=== PATIENT | female | born 1985 | race Caucasian/White ===

== ENCOUNTER 2017-05-22 07:06 | Emergency (ER) | payer OTHER ==
[2017-05-22 07:07] VITALS: BMI 28.7
[2017-05-22 07:09] VITALS: O2SAT 100
--- NOTE | 2017-05-22 07:26 | ED PDOC ---
HPI: Female Pain Time Seen by Provider: 05/22/17 07:20 Chief Complaint (Nursing): Female Genitourinary History Per: Patient Onset/Duration Of Symptoms: Days (1) Current Symptoms Are (Timing): Still Present Severity: Mild Pain Scale Rating Of: 2 Quality Of Discomfort: Cramping Associated Symptoms: denies: Nausea, Vomiting, Diarrhea, Urinary Symptoms Additional Complaint(s): Vaginal bleeding since this AM assoc with lower abd cramping. Approx 4 weeks Abnormal Vaginal Bleeding: Yes Past Medical History Vital Signs: Last Vital Signs Temp 97.8 F 05/22/17 07:09 Pulse 80 05/22/17 07:09 Resp 16 05/22/17 07:09 BP 141/87 05/22/17 07:09 Pulse Ox 100 05/22/17 07:09 - Medical History PMH: No Chronic Diseases - Family History Family History: States: Unknown Family Hx - Immunization History Hx Tetanus Toxoid Vaccination: No Hx Influenza Vaccination: No Hx Pneumococcal Vaccination: No - Home Medications Home Medications: Ambulatory Orders Medication Instructions Recorded No Known Home Med 05/22/17 - Allergies Allergies/Adverse Reactions: Allergies Allergy/AdvReac Type Severity Reaction Status Date / Time No Known Allergies Allergy Verified 03/30/15 08:43 Review of Systems Gastrointestinal: Positive for: Abdominal Pain Genitourinary Female: Positive for: Vaginal Bleeding Musculoskeletal: Negative for: Back Pain Physical Exam - Physical Exam Appears: Positive for: Non-toxic, No Acute Distress Skin: Positive for: Normal Color, Warm, DRY Gastrointestinal/Abdominal: Positive for: Bowel Sounds, Soft. Negative for: Tenderness Pelvic Exam: Positive for: External Exam Normal, No Masses, Blood (scant blood in vault). Negative for: Tender Adnexa, Tender Uterus - Laboratory Results Result Diagrams: 05/22/17 07:50 05/22/17 07:50 - ECG O2 Sat by Pulse Oximetry: 100 Disposition - Clinical Impression Clinical Impression: Threatened miscarriage - Patient ED Disposition Is Patient to be Admitted: No Counseled Patient/Family Regarding: Studies Performed, Diagnosis, Need For Followup, Rx Given - Disposition [facility] Disposition: Routine/Home Disposition Time: 11:07 Condition: FAIR Instructions: Threatened Miscarriage Forms: [employer] (Danish)
[2017-05-22 08:11] LABS: BASO % 0.3 % (0.0-2.0); EOS # 0.1 K/uL (0.0-0.7); EOS % 0.9 % (0.0-4.0); HEMOGLOBIN 10.1 g/dL (12.0-16.0); LYMPH # 2.9 K/uL (1.0-4.3); LYMPH % 27.4 % (20.0-40.0); MEAN CORPUSCULAR HEMOGLOBIN 20.1 pg (27.0-31.0); MEAN PLATELET VOLUME 10.6 fl (7.2-11.7); MONO # 0.6 K/uL (0.0-0.8); MONO % 5.9 % (0.0-10.0); NEUT # 6.9 K/uL (1.8-7.0); NEUT % 65.5 % (50.0-75.0); NRBC % 0.1 % (0.0-0.0); RBC 5.01 Mil/uL (3.80-5.20); RED CELL DISTRIBUTION WIDTH 16.6 % (11.5-14.5); WHITE BLOOD COUNT 10.5 K/uL (4.8-10.8)
[2017-05-22 08:18] LABS: ALB/GLOB RATIO 1.1 (1.0-2.1)
[2017-05-22 08:49] LABS: ALBUMIN 3.7 g/dL (3.5-5.0); ALT/SGPT 33 U/L (9-52); AST/SGOT 18 U/L (14-36); BLOOD UREA NITROGEN 9 mg/dl (7-17); CALCIUM 8.9 mg/dL (8.4-10.2); GFR AFRICAN-AMERICAN > 60; GFR NON-AFRICAN AMERICAN > 60
--- NOTE | 2017-05-22 09:50 | US ---
PROCEDURE: HISTORY: r/o ectopic COMPARISON: TECHNIQUE: FINDINGS: Single live intrauterine fetus with a gestational age of 7 weeks and 1 day. Yolk sac present. heart motion identified. pole with a crown-rump length measurement corresponding to 6 weeks 2 days gestational age. The ovaries have a normal sonographic appearance. IMPRESSION: Single live intrauterine fetus with a mean gestational age of 6 weeks and 2 days based on the crown-rump length.
[2017-05-22 11:22] VITALS: BP 122/75; PULSE 72; RESP 14; TEMP 98.2
== END 2017-05-22 11:28 | disposition home or self-care (01) ==
LOC: H.ER 07:06
DX: O20.0 Threatened abortion (principal); Z3A.01 Less than 8 weeks gestation of pregnancy

== ENCOUNTER 2017-08-02 19:23 | Emergency (ER) | payer SELFPAY ==
[2017-08-02 19:23] VITALS: BMI 28.7
[2017-08-02 19:35] VITALS: BP 118/75; PULSE 90; RESP 18; TEMP 98.4; O2SAT 100
--- NOTE | 2017-08-02 20:46 | ED PDOC ---
HPI: Abdomen Time Seen by Provider: 08/02/17 19:30 Chief Complaint (Nursing): Female Genitourinary Chief Complaint (Provider): Female Genitourinary History Per: Patient History/Exam Limitations: no limitations Onset/Duration Of Symptoms: Days (x2) Current Symptoms Are (Timing): Still Present Additional Complaint(s): 32 year old female, approximately 17 weeks , presents to the emergency department with a complaint of left lower abdominal pain for the last 2 days. Patient reports abdominal pain is mostly resolved with some residual pain but mainly concerned because she has not felt any movement in her belly for a few weeks. She denies any fever, chills, vomiting or vaginal bleeding. A1 PMD: [facility] Past Medical History Reviewed: Historical Data, Nursing Documentation, Vital Signs Vital Signs: Last Vital Signs Temp 98.4 F 08/02/17 19:31 Pulse 90 08/02/17 19:31 Resp 18 08/02/17 19:31 BP 118/75 08/02/17 19:31 Pulse Ox 100 08/02/17 23:07 - Medical History PMH: No Chronic Diseases - Surgical History Surgical History: No Surg Hx - Family History Family History: States: Unknown Family Hx - Social History Current smoker - smoking cessation education provided: No Alcohol: None Drugs: Denies - Immunization History Hx Tetanus Toxoid Vaccination: No Hx Influenza Vaccination: No Hx Pneumococcal Vaccination: No - Home Medications Home Medications: Ambulatory Orders Medication Instructions Recorded No Known Home Med 05/22/17 - Allergies Allergies/Adverse Reactions: Allergies Allergy/AdvReac Type Severity Reaction Status Date / Time No Known Allergies Allergy Verified 03/30/15 08:43 Review of Systems ROS Statement: Except As Marked, All Systems Reviewed And Found Negative Constitutional: Negative for: Fever, Chills Gastrointestinal: Positive for: Abdominal Pain (LLQ). Negative for: Vomiting Genitourinary Female: Negative for: Vaginal Bleeding Physical Exam - Reviewed Nursing Documentation Reviewed: Yes Vital Signs Reviewed: Yes - Physical Exam Appears: Positive for: Non-toxic, No Acute Distress Head Exam: Positive for: ATRAUMATIC, NORMAL INSPECTION, NORMOCEPHALIC Skin: Positive for: Normal Color Eye Exam: Positive for: Normal appearance ENT: Positive for: Normal ENT Inspection Neck: Positive for: Normal Cardiovascular/Chest: Positive for: Regular Rate, Rhythm. Negative for: Murmur Respiratory: Positive for: Normal Breath Sounds. Negative for: Wheezing, Respiratory Distress Gastrointestinal/Abdominal: Positive for: Soft, Other (gravid). Negative for: Tenderness Back: Positive for: Normal Inspection Extremity: Positive for: Normal ROM (upper/lower) Neurologic/Psych: Positive for: Alert (x3), Oriented. Negative for: Motor/ Sensory Deficits - ECG O2 Sat by Pulse Oximetry: 100 (RA) Pulse Ox Interpretation: Normal Medical Decision Making Medical Decision Making: Initial Impression: Abdominal pain; R/O Complete spontaneous Initial Plan: * BETA-HCG * US transvaginal 2215 US FINDINGS: Fetus: Single live intrauterine gestation. Heart rate: heart rate of 146 beats per minute. Presentation: Transverse. Placenta: Anterior placenta. No placenta previa or abruption. Amniotic fluid: Normal. Anatomy: No gross anomaly is appreciated. BIOMETRICS Gestational age: Estimated gestational age of 17 weeks 3 days by measurements. JAMEEL: 01/07/2018 by ultrasound. EFW: Estimated weight of 186 g (32%). BPD: 3.9 cm, correlating with 17 weeks 6 days (68%). HC: 13.8 cm, correlating with 17 weeks 1 day(28%). AC: 11.7 cm, correlating with 17 weeks 3 days(48%). FL: 2.3 cm, correlating with 17 weeks 0 days (28%). MATERNAL: Uterus: Unremarkable. No myometrial mass. Cervix: No cervical dilatation or effacement. Adnexa: Ovaries not visualized. No adnexal masses. Free fluid: No significant free fluid. IMPRESSION: 1. Single live intrauterine gestation. pt made aware of results. feels better. stable for dc and will follow up with outpt infrastructure solutions architect, Scribe Attestation: Documented by Pretty Vo-Dickey, acting as a scribe for Jayleen Membreno MD. Provider Scribe Attestation: All medical record entries made by the Scribe were at my direction and personally dictated by me. I have reviewed the chart and agree that the record accurately reflects my personal performance of the history, physical exam, medical decision making, and the department course for this patient. I have also personally directed, reviewed, and agree with the discharge instructions and disposition. Disposition - Clinical Impression Clinical Impression: - Patient ED Disposition Is Patient to be Admitted: No Counseled Patient/Family Regarding: Studies Performed, Diagnosis, Need For Followup - Disposition Disposition: Routine/Home Disposition Time: 21:00 Condition: IMPROVED Additional Instructions: follow up with your primary hand coremaker return to the ED with any worsening or concerning symptoms Instructions: Symptoms Forms: [employer] (Turkish)
--- NOTE | 2017-08-02 22:16 | US ---
EXAM: US After First Trimester, Transabdominal CLINICAL HISTORY: 32 years old, female; Signs and symptoms; Lmp or gestational age (in weeks): 04/02/17; Antepartum complications; Other: No movement; ; Additional info: 17 wk no movement TECHNIQUE: Real-time transabdominal obstetrical ultrasound of the maternal pelvis and a second or third trimester with image documentation. COMPARISON: US - OB TRANSVAGINAL 2015-01-28 17:35 FINDINGS: Fetus: Single live intrauterine gestation. Heart rate: heart rate of 146 beats per minute. Presentation: Transverse. Placenta: Anterior placenta. No placenta previa or abruption. Amniotic fluid: Normal. Anatomy: No gross anomaly is appreciated. BIOMETRICS Gestational age: Estimated gestational age of 17 weeks 3 days by measurements. JAMEEL: 01/07/2018 by ultrasound. EFW: Estimated weight of 186 g (32%). BPD: 3.9 cm, correlating with 17 weeks 6 days (68%). HC: 13.8 cm, correlating with 17 weeks 1 day(28%). AC: 11.7 cm, correlating with 17 weeks 3 days(48%). FL: 2.3 cm, correlating with 17 weeks 0 days (28%). MATERNAL: Uterus: Unremarkable. No myometrial mass. Cervix: No cervical dilatation or effacement. Adnexa: Ovaries not visualized. No adnexal masses. Free fluid: No significant free fluid. IMPRESSION: 1. Single live intrauterine gestation.
[2017-08-02 22:34] LABS: SQUAMOUS EPITHIAL 1 /hpf (0-5); URINE BILIRUBIN NEGATIVE (NEGATIVE); URINE BLOOD NEGATIVE (NEGATIVE); URINE CLARITY CLEAR (Clear); URINE COLOR COLORLESS (YELLOW); URINE GLUCOSE (UA) NEG (Normal); URINE HYALINE CAST 0-2 /hpf (0-2); URINE LEUKOCYTE ESTERASE NEG Leu/uL (Negative); URINE PROTEIN NEGATIVE (NEGATIVE); URINE UROBILINOGEN 0.2-1.0 mg/dL (0.2-1.0)
== END 2017-08-02 23:39 | disposition home or self-care (01) ==
LOC: H.ER 19:23
DX: O26.92 Pregnancy related conditions, unspecified, second trimester (principal); R10.2 Pelvic and perineal pain; Z36.9 Encounter for antenatal screening, unspecified; Z3A.17 17 weeks gestation of pregnancy

== ENCOUNTER 2017-11-01 12:58 | Emergency (ER) | payer SELFPAY ==
[2017-11-01 15:17] VITALS: BMI 27.8
[2017-11-01 16:40] LABS: SQUAMOUS EPITHIAL 3 /hpf (0-5); URINE BACTERIA RARE (<OCC); URINE BILIRUBIN NEGATIVE (NEGATIVE); URINE BLOOD NEGATIVE (NEGATIVE); URINE CLARITY SLIGHTY-CLOUDY (Clear); URINE COLOR YELLOW (YELLOW); URINE GLUCOSE (UA) NEG (Normal); URINE LEUKOCYTE ESTERASE NEG Leu/uL (Negative); URINE PROTEIN NEGATIVE (NEGATIVE); URINE UROBILINOGEN 0.2-1.0 mg/dL (0.2-1.0)
[2017-11-01 22:38] VITALS: BP 97/56; PULSE 84; O2SAT 99
--- NOTE | 2017-11-02 11:40 | OBHP ---
Datetime: 11/01/2017 14:37 IP Adm Impression: , intrauterine Admit Comment, IP Provider: PNP: [facility] 32 yo at 31 wks based off of ultrasound performed at 2 months (as per patient) is presenti ng with c/o rt upper _ lt upper abd pain since about 11am this morning, 10/12. Patient also reports so me lower back pain. Pt denied any complications in this . OBGYNhx: 2014- miscarriage with D _ C at 12-13 wks 2016- , F PMH: neg Allergies: neg Fam hx: Dad- DM Sochx: no Tobacco, EtOH or drugs Surghx: neg ROS: neg for nausea, vomitting, cp or sob PE: Gen: well appearing female Cardio: s1s2 no murmurs Abd: BS +, nontender Ext: calves nontender A/P: 32 yo at 31 wks 1. Will perform speculum exam Patient seen and examined with Dr. Christina Lees PGY-1 obh addendum: pt seen _ examined by me. denies ctxs, cramping, decreased fm, pprom, vag bleeding or coitus in pa st 24hrs. o: u/a neg i: abd discomfort due to preg p: d/c home ptl precautions f/u w/ ob w/in 1wk avoid fatty, fried and spicy foods. Pelvic Type - PN: Adequate Extremities - PN: Normal Abdomen - PN: Normal Back - PN: Normal Lungs - PN: Normal Heart - PN: Normal Neurologic - PN: Normal HEENT - PN: Normal General - PN: Normal FHR - Baseline A Provider: 140 Contraction Comments Provider: occasional not appreciated by pt EGA AdmitDate IP: 30.3 Vital Signs Provider: Reviewed; Within Normal Limits IP Chief Complaint: Maternal discomfort NICHD Variability Prov Fetus A: Moderate 6-25bpm NICHD Accel Fetus A IP Provider: 10X10 FHR Category Provider Fetus A: Category I Dilatation, Provider: 0 Effacement, Provider: 0 Station, Provider: -4 Genitourinary Exam: Normal Signature: eryn
== END 2017-11-01 18:00 | disposition home or self-care (01) ==
LOC: H.EROB2 12:58
DX: O26.93 Pregnancy related conditions, unspecified, third trimester (principal); R10.2 Pelvic and perineal pain; M54.5 Low back pain; Z3A.31 31 weeks gestation of pregnancy

== ENCOUNTER 2018-01-03 15:42 | Emergency (ER) | payer MEDICAID, SELFPAY ==
[2017-11-19 08:07] VITALS: BMI 27.8
--- NOTE | 2018-01-03 18:19 | OBDCSUM ---
Datetime: 01/03/2018 17:20 Discharged to, Provider: Home Follow up at, Provider: [facility] Disch Instr Activity: Normal activity Disch Instr Diet: Regular Discharge Diagnosis, Provider: False Labor - Undelivered Discharge Time: 01/03/2018 17:20 Follow up in weeks, Provider: as per appt
--- NOTE | 2018-01-03 18:19 | OBHP ---
Datetime: 01/03/2018 16:04 IP Adm Impression: Term, intrauterine IP Admit Plan: Observation/Evaluation Admit Comment, IP Provider: 32 yo f at 39.4 GA was sent to the OB ED from clinic because of possible rupture of membranes. Patient reports she cannot tell whether see broke her water while urinating this morning or not bu t she denies vaginal gush of fluid and vaginal bleeding. She reports good movement. Of note: GBS positive 12/13/17. PMH: Iron deficiency Anemia and beta thalassemia Medications: Ferrous sulfate and PNV Surgical history: Denies Allergies: NKDA PE: No acute distress Heart: S1 and S2, no murmurs, gallops or rubs. Lungs: Clear air entry bilaterally. Vaginal Exam: Assistant Professor Of [employer] present. Patient is 3//-3. Nitrazine paper negative. No pooling on spucu lum exam. heart rate: Baseline 145; Moderate variability; Accelerations present. No decelerations. No contractions. Category 1 tracing. Assessment: 32 yo f at 39.4 GA was sent to the OB ED from clinic because of possible ruptu re of membranes found to be Nitrazine negative and no pooling on exam. Plan: - heart monitor - Observe Patient reexamined at 1734 - Exam remains unchanged (07/02/-3). Discharge: 1734 - Patient being discharged and was counseled on returning if she has a gush of water expelled thro ugh the vagina, vaginal bleeding, decreased movement or Contractions that are 5 minutes apart. Patient has ultrasound scheduled for tomorrow. Discussed case with Dr. Marquita Richards, PGY-[address] Juárez: I have evaluated the patient independently and I agree with the above Pelvic Type - PN: Adequate Extremities - PN: Normal Abdomen - PN: Normal Back - PN: Normal Breast - PN: Not Done Lungs - PN: Normal Heart - PN: Normal Thyroid - PN: Not Done Neurologic - PN: Normal HEENT - PN: Normal General - PN: Normal FHR - Baseline A Provider: 145 Contraction Comments Provider: Patient unable to specify Comments, ACOG Physical Exam: PE: No acute distress Heart: S1 and S2, no murmurs, gallops or rubs. Lungs: Clear air entry bilaterally. Vaginal Exam: Assistant Professor [employer] present. Patient is 07/02/-3. Nitrazine paper negative. No pooling on spucu lum exam. heart rate: Baseline 145; Moderate variability; Accelerations present. No decelerations. Cat egory 1 tracing. Pool Provider: Negative Nitrazine Provider: Negative EGA AdmitDate IP: 39.3 Vital Signs Provider: Reviewed; Within Normal Limits IP Chief Complaint: Uterine contractions; Suspected ruptured membranes NICHD Variability Prov Fetus A: Moderate 6-25bpm NICHD Accel Fetus A IP Provider: 15X15 FHR Category Provider Fetus A: Category I NICHD Decel Fetus A IP Provider: None Dilatation, Provider: 3cm Effacement, Provider: 30 Station, Provider: -3 Genitourinary Exam: Normal DTRs - PN: Not Done
[2018-01-03 22:43] VITALS: BP 106/67; PULSE 89; RESP 17
== END 2018-01-03 17:30 | disposition home or self-care (01) ==
LOC: H.EROB2 15:42
DX: O34.63 Maternal care for abnormality of vagina, third trimester (principal); N89.8 Other specified noninflammatory disorders of vagina; Z3A.39 39 weeks gestation of pregnancy

== ENCOUNTER 2018-01-03 23:19 | Inpatient (IN) | payer MEDICAID, SELFPAY ==
[2018-01-03 23:34] VITALS: BMI 30.7
[2018-01-03] MEDS ORDERED: Lactated Ringer's 1,000 ML IV ONE (23:34)
[2018-01-03] MEDS ORDERED: Penicillin G Potassium 5 MU in Sodium Chloride 0.9% 50 ML IVPB ONE (23:45)
[2018-01-03] MEDS ORDERED: Penicillin G 5 Million Unit Vial IVPB ONE (23:51)
[2018-01-04 00:33] LABS: BASO # 0.1 K/uL (0.0-0.2); BASO % 0.5 % (0.0-2.0); EOS # 0.1 K/uL (0.0-0.7); EOS % 0.4 % (0.0-4.0); HEMOGLOBIN 9.9 g/dL (12.0-16.0); LYMPH # 2.9 K/uL (1.0-4.3); LYMPH % 17.4 % (20.0-40.0); MEAN CELL VOLUME 63.9 fl (81.0-99.0); MEAN CORPUSCULAR HEMOGLOBIN 20.5 pg (27.0-31.0); MEAN CORPUSCULAR HGB CONC 32.2 g/dL (33.0-37.0); MEAN PLATELET VOLUME 9.3 fl (7.2-11.7); MONO # 0.6 K/uL (0.0-0.8); MONO % 3.8 % (0.0-10.0); NEUT # 13.1 K/uL (1.8-7.0); NEUT % 77.9 % (50.0-75.0); RBC 4.81 Mil/uL (3.80-5.20); RED CELL DISTRIBUTION WIDTH 16.3 % (11.5-14.5); WHITE BLOOD COUNT 16.8 K/uL (4.8-10.8)
[2018-01-04 00:42] VITALS: O2SAT 100
[2018-01-04] MEDS ORDERED: Oxytocin 30 UNIT 30 UNITS/500 ML BAG IV ONE (01:45)
[2018-01-04] MEDS ORDERED: OXYTOCIN/0.9 % NS 20 UNIT/1,000 ML BAG IV SCH (02:00)
[2018-01-04] MEDS ORDERED: Benzocaine/Menthol SPRAY TOP PRN ×2 (02:46→06:06)
--- NOTE | 2018-01-04 07:18 | OBDS ---
DELIVERY PERSONNEL Delivery Doctor: Irene Juárez MD Language Pathologist: Brunilda Mortensen RN (Annotations: Data stored by N on behalf of user) Resident: Dr Gonzalez / Dr Thompson MATERNAL INFORMATION Delivery Anesthesia: None Medications in Delivery: Pitocin Estimated Blood Loss (ml): 200 Placenta Cultured: No (Annotations: Data stored by CPN on behalf of user) Maternal Complications: None Provider Comments: Over intact perineum, of live male at 02:27 AM, Weight 2990 gm, 12/12 A PGAR. Head OA delivered first followed with delivery of right anterior shoulder in a controlled genesis r followed by posterior arm and body. was bulb suctioned nasopharygeally and crying spontaneou sly. Umbilical cord was cut. Skin to skin was done with mother. Placenta was delivered intact spontan eously. Perineum 1st degree laceration and repaired. Uterus firm and appropriately hemostatic followi ng delivery. Pt tolerated delivery well. No Complications. QBL 200 mL. Patient and baby remained stable. OB attending Dr. Juárez was present and active throughout the delivery --- John Gonzalez MD PGY-2 LABOR SUMMARY EDC: 01/07/2018 00:00 No. Babies in Womb: 1 Attempted: No Labor Anesthesia: None LABOR INFORMATION Reason for Induction: Not Applicable Onset of Labor: 01/03/2018 21:00 Complete Dilatation: 01/04/2018 01:47 Oxytocin: N/A Group B Beta Strep: Positive Antibiotics # of Doses: 1 Antibiotics Time of Last Dose: 0058 Steroids Given: None Reason Steroids Not Administered: Not Applicable MEMBRANES Membranes Rupture Method: Artificial Rupture of Membranes: 01/04/2018 02:18 Length of Rupture (hrs): 0.15 Amniotic Fluid Color: Light Meconium Amniotic Fluid Amount: Scant Amniotic Fluid Odor: Normal STAGES OF LABOR Stage 1 hrs: 4 Stage 1 min: 47 Stage 2 hrs: 0 Stage 2 min: 40 Stage 3 hrs: 0 Stage 3 min: 3 Total Time in Labor hrs: 5 Total Time in Labor min: 30 VAGINAL DELIVERY Episiotomy: None Laceration Extension: First Degree Laceration Type: Perineal Laceration Repair: Yes Laceration Repair Note: 1st degree perineal laceration repaired with (1) 2.0 rapide. Initial Vag Sponge Count: 15 Final Vag Sponge Count: 15 Initial Vag Sharps Count: 2 Final Vag Sharps Count: 2 Sponge Count Correct: Yes Sharps Count Correct: Yes Count Comment: count correct BABY A INFORMATION Infant Delivery Date/Time: 01/04/2018 02:27 Method of Delivery: Vaginal Born in Route : No : N/A Forceps: N/A Vacuum Extraction: N/A Shoulder Dystocia : No SHOULDER DYSTOCIA BABY A Infant Delivery Date/Time: 01/04/2018 02:27 PRESENTATION/POSITION BABY A Presentation: Cephalic PLACENTA INFORMATION BABY A Placenta Delivery Time : 01/04/2018 02:30 Placenta Method of Delivery: Spontaneous Placenta Status: Delivered SCORES BABY A Heart Rate 1 min: >100 bpm Resp Effort 1 min: Good Cry Reflex Irritability 1 min: Cough or Sneeze or Pulls Away Muscle Tone 1 min: Active Motion Color 1 min: Body Shelley, Extremities Blue Resuscitation Effort 1 min: Tactile Stimulation SCORE 1 MIN: 9 Heart Rate 5 min: >100 bpm Resp Effort 5 min: Good Cry Reflex Irritability 5 min: Cough or Sneeze or Pulls Away Muscle Tone 5 min: Active Motion Color 5 min: Body Shelley, Extremities Blue Resuscitation Effort 5 min: N/A SCORE 5 MIN: 9 INFANT INFORMATION BABY A Gestational Age at Delivery: 39.4 Gestational Status: Term Infant Outcome : Liveborn Infant Condition : Stable Infant Sex: Female IDENTIFICATION/MEDS BABY A ID Band Number: [id number] ID Band Location: Left Leg; Left Arm WEIGHT/LENGTH BABY A Infant Birthweight (gms): 2990 Weight (lb): 6 Weight (oz): 9 CORD INFORMATION BABY A No. Cord Vessels: 3 Nuchal Cord : N/A Cord Blood Taken: Yes Suction: None ASSESSMENT BABY A Complications: None Physical Findings at Delivery: Within Normal Limits Respirations: Appears Normal Tile Layer Drainage/ALS Called : No Infant Care By: Pietro Transferred To: Remains with Mother
[2018-01-04] MEDS ORDERED: Multivitamin With Minerals Tab PO SCH (09:00)
[2018-01-04] MEDS: Multivitamin With Minerals Tab PO SCH (09:43)
[2018-01-04 10:16] LABS: MEAN CELL VOLUME 64.2 fl (81.0-99.0); MEAN CORPUSCULAR HEMOGLOBIN 20.8 pg (27.0-31.0); MEAN CORPUSCULAR HGB CONC 32.5 g/dL (33.0-37.0); RBC 3.82 Mil/uL (3.80-5.20); RED CELL DISTRIBUTION WIDTH 16.5 % (11.5-14.5); WHITE BLOOD COUNT 18.4 K/uL (4.8-10.8)
--- NOTE | 2018-01-04 10:53 | OBPPN ---
Datetime: 01/04/2018 05:00 PP Pain Prov: Within normal limits PP Nausea Prov: Denies PP Flatus Prov: No PP BM Prov: No PP Heart Prov: Normal PP Lungs Prov: Normal PP Abdomen/Uterus Prov: Normal PP Lochia Prov: Normal PP Extremities Prov: Normal PP Progress Prov: Normal PP Impression Prov: Normal progression PP Plan Prov: Continue present management PP Progress Note Prov: PPD 0 S: 32 yo . Seen and examined bedside. Patient reports mild pain since delivery, controlled wit h pain medication. Has not ambulated yet. without difficulty. Lochia is similar to mens es volume. Has not passed gas or had bowel movement. She reports muscle aching in her R calf, but den ies any tenderness to palpation or increased tenderness with movement. Denies fever/chills, diarrhea, nausea/vomitting, CP/SOB, and lightheadedness. O: BP 114/64, HR 86, Tmax 99F Blood: B pos Rubella: non-immune PE: GEN: A_O, Resting comfortably in bed eating HEENT: White sclera, oral mucosa moist Breast: Engorged Lungs: CTA B/L, no wheeze CVS: RRR, S1, S2 normal ABD: +BS, firm fundus @ umbilicus, soft Pelvic: Appropriate amount of lochia, no odor, minimal small clots Assessment:32 yo f at 39.4 weeks on 01/04/18 at 2:27am. Pt afebrile, tolerating pain with medication and tolerating oral intake of liquids and solids. Plan: Regular diet as tolerated OOB with caution Ibuprofen 600mg 1tab Q6h PO for mild pain Encourage and ambulatory Iron: if h/h <10, take with Vit C Colace 100mg PO BID for constipation Simethicone 80mg BID for gas Rubella non-immune: MMR prior to D/C Disposition: anticipate discharge to home on 01/06/18 with oob/ambulatory precaution. Case discussed with Dr. Juárez. ----Ml Thompson, PGY1 Family Medicine Patient seen and examined by me this am. Agree with above resident note. Encouraged breast feeding and ambulation. Continue pain meds as needed. --Dr. Osorio IP PP Procedures: None Vital Signs Provider PP: Within Normal Limits
[2018-01-05] MEDS: Multivitamin With Minerals Tab PO SCH (08:26)
[2018-01-05] MEDS ORDERED: Measles, Mumps, and Rubella 0.5 ML VIAL SC ONE ×2 (10:00→15:30)
--- NOTE | 2018-01-05 10:02 | OBPPN ---
Datetime: 01/05/2018 05:01 PP Pain Prov: Within normal limits PP Nausea Prov: Denies PP Flatus Prov: Yes PP BM Prov: No PP Breasts Prov: Not Done PP Heart Prov: Normal PP Lungs Prov: Normal PP Abdomen/Uterus Prov: Normal PP Lochia Prov: Normal PP Vulva/Perineum Prov: Not Done PP CVA Tenderness Prov: Not Done PP Extremities Prov: Normal PP C/S Incision Prov: Not Applicable PP Progress Prov: Normal PP Impression Prov: Normal progression PP Plan Prov: Continue present management PP Progress Note Prov: PPD 1 S: 32 yo f . Seen and examined bedside. Patient reports mild pain since delivery, controlle d with pain medication. Has ambulated to the bathroom without dizziness. without issues but interested in supplementing with formula. Lochia is similar in volume to a heavy menses. Admits to passing gas but denies any bowel movements. Denies fever/chills, diarrhea, nausea/vomitting, CP/SO B, calf pain and lightheadedness. O: BP 113/76 , HR 99, Tmax 99F Blood: B+, Antibody neg PE: GEN: A_O, Resting comfortably in bed HEENT: White sclera, oral mucosa moist Breast: Engorged Lungs: CTA B/L, no wheeze CVS: RRR, S1, S2 normal ABD: +BS, firm fundus @ umbilicus, soft Pelvic: Appropriate amount of lochia, no odor, minimal small clots Assessment: 32 yo on 01/04/18. Pt afebrile, tolerating pain with medication and tolera ting oral intake of liquids and solids. Plan: Regular diet as tolerated OOB with caution Ibuprofen 600mg 1tab Q6h PO for mild pain Encourage and ambulation Iron: if h/h <10, take with Vit C Colace 100mg PO BID for constipation Simethicone 80mg BID for gas Rubella non-immune: MMR prior to D/C Disposition: anticipate discharge to home on 01/06/18 with oob/ambulatory precaution. ----Ml Thompson, PGY1 Family Medicine Patient seen and examined by me today. Agree with above note. Ambulation and breast feeding encour aged --Dr. Osorio
[2018-01-06] MEDS: Multivitamin With Minerals Tab PO SCH (09:37)
--- NOTE | 2018-01-06 10:08 | OBPPN ---
Datetime: 01/06/2018 07:52 PP Pain Prov: Within normal limits PP Nausea Prov: Denies PP Flatus Prov: Yes PP BM Prov: Yes PP Breasts Prov: Not Done PP Heart Prov: Normal PP Lungs Prov: Normal PP Abdomen/Uterus Prov: Normal PP Lochia Prov: Normal PP Vulva/Perineum Prov: Not Done PP CVA Tenderness Prov: Normal PP Extremities Prov: Normal PP C/S Incision Prov: Not Applicable PP Progress Prov: Normal PP Impression Prov: Normal progression PP Plan Prov: Discharge PP Progress Note Prov: PPD 2 S: 32 yo s/p NVD on 01/04/2018 at 02:27. Pt. is seen and examined at bedside this AM. No s ignificant overnight events. Pt reports occasional abdominal pain, but well controlled with pain meds . Pt is ambulating without any difficulties. Breast feeding baby. Tolerating PO diet. Lochia is simil ar to light menses in volume. Voiding freely, with bowel movement, and passing gas per rectum. Denies fever, chills, diarrhea, nausea, vomiting, chest pain, dyspnea, and dizziness. O: VS: stable GEN: NAD Cardio: S1S2, no M/G/R Resp: clear breath sounds b/l Abdomen: BS+, NT, Uterus is firm and at the level of the umbilicus. EXT: No edema, calves nontender NEURO/PSYCHI: AAOx3, no grossly focal deficit, preserved affect and mood. Assessment/Plan: 32 yo s/p NVD on 01/04/2018 at 02:27. Pt remains afebrile, tolerating savanah n with medication, tolerating PO intake, doing well on PPD2. OOB with caution SCDs for DVT prophylaxis, pt ambulating Ibuprofen 600mg for pain. Colace 100mg PO BID/Senokot 17.2 mg qHS for constipation Encourage and ambulating F/u CBC post-delivery: 8.0/24.5 Anticipated d/c to home, 01/06/2018. Case dw OB attending --- John Gonzalez MD PGY-2 Patient seen and examined by me this am. Agree with above resident note. Patient for discharge ho me today with follow up in 6 weeks. Continue Motrin for pain and Iron supplemenation for anemia. --Dr. Osorio IP PP Procedures: Rubella Vital Signs Provider PP: Reviewed; Within Normal Limits
[2018-01-06] MEDS ORDERED: Influenza Vaccine (5 YR UP)/PF 60 MCG/0.5 ML SYR IM ONE (10:41)
[2018-01-06 20:11] VITALS: BP 103/67; PULSE 79; RESP 18; TEMP 98.7
== END 2018-01-06 13:00 | disposition home or self-care (01) | DRG 373 ==
LOC: H.EROB2 23:19 → H.L&D 23:38 → H.OB/GYN 01-04 04:30
PROVIDERS: ADMIT Obstetrics & Gynecology; ATTEND Obstetrics & Gynecology
PROC: 4A1HXCZ Monitoring of Products of Conception, Cardiac Rate, External Approach (ICD-10-PCS; 2018-01-03)
PROC: 10E0XZZ Delivery of Products of Conception, External Approach (ICD-10-PCS; principal; 2018-01-04)
PROC: 0HQ9XZZ Repair Perineum Skin, External Approach (ICD-10-PCS; 2018-01-04)
PROC: 10907ZC Drainage of Amniotic Fluid, Therapeutic from Products of Conception, Via Natural or Artificial Opening (ICD-10-PCS; 2018-01-04)
PROC: 3E0234Z Introduction of Serum, Toxoid and Vaccine into Muscle, Percutaneous Approach (ICD-10-PCS; 2018-01-06)
DX: O77.0 Labor and delivery complicated by meconium in amniotic fluid (principal); O70.0 First degree perineal laceration during delivery; O99.824 Streptococcus B carrier state complicating childbirth; K59.00 Constipation, unspecified; Z37.0 Single live birth; Z3A.39 39 weeks gestation of pregnancy; Z23 Encounter for immunization